=== PATIENT | male | born 1955 | race Caucasian/White ===

== ENCOUNTER 2025-02-19 17:53 | Emergency (ER) | payer OTHER ==
[~2025-02-19] VITALS: Ht 177.8 cm; Wt 92.0 kg
[2025-02-19] MEDS ORDERED: AMLODIPINE BESYLATE 5 MG TAB PO ONE (19:45)
[2025-02-19] MEDS ORDERED: NORVASC5 MG PO (19:53)
[2025-02-19] MEDS ORDERED: LISINOPRIL40 MG PO (19:53)
[2025-02-19 20:29] VITALS: BP 206/112
== END 2025-02-19 20:30 | disposition home or self-care (01) ==
LOC: ED 17:53
DX: I10 Essential (primary) hypertension (principal); I69.954 Hemiplegia and hemiparesis following unspecified cerebrovascular disease affecting left non-dominant side; Z91.148 Patient's other noncompliance with medication regimen for other reason
CPT/HCPCS: 96372; 99283; J0360

== ENCOUNTER 2025-03-20 23:02 | Emergency (ER) | payer OTHER ==
[~2025-03-20] VITALS: Ht 177.8 cm; Wt 120.0 kg
[~2025-03-20 23:02] MED LIST: LISINOPRIL40 MG PO; NORVASC5 MG PO
--- OUTSIDE RECORDS SUMMARY | 2025-03-20 23:04 | XMS ---
PreManage Notification: MARK BATISTA [employer] Events No recent Security Events currently on file CRITERIA MET - [facility] - 2 Visits in 30 Days CARE PROVIDERS There are no care providers on record at this time. Michelle has no Care Guidelines for this patient. Luca VISIT COUNT (12 MO.) 2 [facility] [place] [facility] TOTAL 2 NOTE: Visits indicate total known visits. ED/C VISIT TRACKING (12 MO.) 03/20/2025 23:[address] [facility] [place] TYPE: Emergency COMPLAINT: - SWOLLEN LEGS 02/19/2025 17:54 [facility] [place] TYPE: Emergency COMPLAINT: - HIGH BP DIAGNOSES: - Essential (primary) hypertension - Hemiplegia and hemiparesis following unspecified cerebrovascular disease affecting left non-dominant side - Patient's other noncompliance with medication regimen for other reason INPATIENT VISIT TRACKING (12 MO.) No inpatient visits to display in this time frame [email or web address]
[2025-03-20 23:47] LABS: BASOPHILS 0.8 % (0.2-1.2); EOSINOPHILS 5.2 % (0.8-7.0); LYMPHOCYTES 25.4 % (21.8-53.1); MCH 30.1 PG (25.7-32.2); MCHC 34.5 g/dL (32.3-36.5); MCV 87.3 fL (79.0-92.2); MONOCYTES 11.2 % (5.3-12.2); NEUTROPHILS 56.9 % (34.0-67.9); RBC 5.34 M/uL (4.63-6.08)
[2025-03-21 00:08] LABS: ALT (SGPT) 46.0 U/L (14-59); AST (SGOT) 29.0 U/L (15-37); GLOMERULAR FILTRATION RATE,EST 98.0 mL/min (>60); PROTEIN, TOTAL 6.7 g/dL (6.4-8.2); UREA NITROGEN 12.0 mg/dL (7-18)
[2025-03-21] MEDS ORDERED: FUROSEMIDE 40 MG/4 ML VIAL ONE (00:10)
[2025-03-21] MEDS ORDERED: LASIX40 MG PO (00:19)
[2025-03-21 00:33] VITALS: BP 168/85
[2025-03-21] MEDS ORDERED: FUROSEMIDE 40 MG/4 ML VIAL IV ONE (23:45)
== END 2025-03-21 00:34 | disposition home or self-care (01) ==
LOC: ED 23:02
PROVIDERS: Family Medicine
DX: R60.0 Localized edema (principal); I10 Essential (primary) hypertension
CPT/HCPCS: 36415; 80053; 85025; 85379; 96374; 99283-25; J1938